=== PATIENT | female | born 1960 | race Hispanic/Latino ===

== ENCOUNTER 2021-09-16 09:51 | Outpatient (CLI) | payer SELFPAY ==
[2021-09-16 19:25] LABS: SARS-CoV-2 PCR by NAA Not Detected (NotDetected)
== END 2021-09-16 09:52 | disposition home or self-care (01) ==
LOC: CSHLAB 09:51
PROVIDERS: ATTEND Surgery
DX: Z01.818 Encounter for other preprocedural examination (principal); Z20.822 Contact with and (suspected) exposure to COVID-19; K80.20 Calculus of gallbladder without cholecystitis without obstruction
CPT/HCPCS: 93005; 93010; U0003; U0005

== ENCOUNTER 2021-09-19 07:30 | Day surgery (SDC) | payer SELFPAY ==
[2021-09-11 11:18] VITALS: BMI 32.8
[2021-09-19] MEDS ORDERED: Lidocaine 1% MPF 2 ML VIAL ONE (07:45)
[2021-09-19] MEDS ORDERED: Fentanyl 100 MCG/2 ML VIAL ONE (09:11)
[2021-09-19] MEDS ORDERED: PROPOFOL 20 ML ONE (09:11)
[2021-09-19] MEDS ORDERED: Midazolam HCl 2 mg/2 ml Vial ONE (09:11)
[2021-09-19] MEDS ORDERED: Bupivacaine PF 0.5% 30 ML VIAL ONE (09:14)
[2021-09-19] MEDS ORDERED: EPINEPHrine 1 MG/ML AMP ONE (09:14)
[2021-09-19] MEDS ORDERED: Lidocaine 2% PF 5 ML VIAL ONE (09:15)
[2021-09-19] MEDS ORDERED: Ketorolac Tromethamine 30 MG/ML VIAL ONE (09:15)
[2021-09-19] MEDS ORDERED: Glycopyrrolate 0.2 MG/ML 5 ML SYRINGE ONE (09:15)
[2021-09-19] MEDS ORDERED: Rocuronium Bromide 10 MG/ML (10ML VIAL) ONE (09:16)
[2021-09-19] MEDS ORDERED: Lidocaine 1% PF 5 ML VIAL ONE (09:16)
[2021-09-19] MEDS ORDERED: Ondansetron PF 4 MG/2 ML Vial ONE (09:16)
[2021-09-19] MEDS ORDERED: Metoclopramide HCl 10 MG/2 ML VIAL ONE (09:16)
[2021-09-19] MEDS ORDERED: Dexamethasone 20 MG/5 ML VIAL ONE (09:16)
[2021-09-19] MEDS ORDERED: ceFAZolin 2 GM/Dextrose 50 ML IVPB ONE (09:38)
[2021-09-19] MEDS ORDERED: PHENYLEPHRINE-NS 100 MCG/ML 10 ML SYRINGE ONE (10:03)
[2021-09-19] MEDS ORDERED: HYDROcodone/Acetaminophen 5/325 mg Tablet PO PRN (11:57)
== END 2021-09-19 12:45 | disposition home or self-care (01) ==
LOC: CSHSDC 07:30
PROVIDERS: ATTEND Surgery
PROC: 0FT44ZZ Resection of Gallbladder, Percutaneous Endoscopic Approach (ICD-10-PCS; principal; 2021-09-19)
DX: K80.10 Calculus of gallbladder with chronic cholecystitis without obstruction (principal); I10 Essential (primary) hypertension; Z79.899 Other long term (current) drug therapy
CPT/HCPCS: 88304; C1776; J0171; J0690; J1100; J1885; J2001; J2250; J2405; J2704; J2765; J3010; S0020